=== PATIENT | female | born 1970 | race Hispanic/Latino ===

== ENCOUNTER 2018-02-21 10:13 | Emergency (ER) | payer SELFPAY ==
[2018-02-21 11:13] LABS: Absolute Lymphocytes (CBC) 1.6 K/uL (0.7-4.9); Absolute Monocytes 0.5 K/uL (0.1-1.3); Absolute Neutrophil 4.1 K/uL (1.8-8.0); Basophils % 0.7 % (0-1.3); Eosinophils % 0.7 % (0-4.4); Hematocrit 32.1 % (36.0-45.0); Lymphocytes % 25.8 % (15.3-44.8); MCH 20.5 pg (27.0-35.0); MPV 8.4 fL (7.6-11.3); Monocytes % 8.2 % (3.3-12.3)
[2018-02-21 11:30] LABS: Potassium 3.3 mEq/L (3.6-5.0)
[2018-02-21] MEDS ORDERED: cloNIDine HCl 0.1 MG TAB ONE (11:32)
[2018-02-21 11:36] LABS: Bilirubin Direct 0.1 mg/dL (0-0.2); Bilirubin Total 1.3 mg/dL (0.3-1.2); Magnesium 2.1 mg/dL (1.8-2.5); Protein, Total 7.8 g/dL (6.0-8.3)
[2018-02-21 11:39] LABS: CKMB Creatine Kinase MB 0.7 ng/ml (0.3-4.0)
--- NOTE | 2018-02-21 11:46 | RAD REPORT ---
EXAM DESCRIPTION: RAD - Chest Single View - 02/21/2018 11:08 am CLINICAL HISTORY: Chest pain. COMPARISON: None. FINDINGS: Portable technique limits examination quality. The lungs are grossly clear. The heart is normal in size. No displaced fractures. IMPRESSION: No acute intrathoracic process suspected.
[2018-02-21 11:55] LABS: Protime INR 1.05
[2018-02-21 12:10] LABS: Anisocytosis 1+; Blood Morphology Comment NOTED (NOT SEEN); Hypochromasia 1+; Platelet Estimate ADEQ; Urine White Blood Cell Casts OK
[2018-02-21 13:22] LABS: Urine Blood 1+ (NEG); Urine Glucose NEGATIVE (NEG); Urine Protein 3+ (NEG)
--- NOTE | 2018-02-21 13:31 | RAD REPORT ---
EXAM DESCRIPTION: CT - Angio Aorta For Dissection - 02/21/2018 1:14 pm CLINICAL HISTORY: Chest pain radiating to the back. COMPARISON: None. TECHNIQUE: CT angiography of the aorta was performed with volume rendering. All CT scans are performed using dose optimization technique as appropriate and may include automated exposure control or mA/KV adjustment according to patient size. FINDINGS: A left aortic arch is present with normal branching pattern of the great vessels.No acute aortic finding is seen such as aneurysm, penetrating ulcer or dissection. The celiac axis, SMA, TORRI and renal arteries are widely patent. No evidence of pulmonary embolism. The lungs are clear. The liver demonstrates no focal mass or biliary dilatation.The spleen, pancreas, adrenal glands and k idneys are within normal limits for arterial phase imaging. No bowel obstruction, free fluid or abscess.Small fat containing umbilical hernia.No pathologic enlar ged lymphadenopathy identified. No fracture or worrisome bone lesion seen. IMPRESSION: No acute aortic finding is demonstrated.
[2018-02-21] MEDS ORDERED: NA CHLORIDE 0.9% 1,000 ML ONE (13:58)
[2018-02-21] MEDS ORDERED: MAGNE/ALUM HYDROXD 30 ML UCUP ONE ×2 (13:58→15:29)
[2018-02-21] MEDS ORDERED: LIDOCAINE VISCOUS 2% SOLN 15 ML UDC ONE ×2 (13:59→15:29)
--- NOTE | 2018-02-21 15:18 | ER ---
Nurse's Notes [facility] Name: Ana María Orr Age: 48 yrs Sex: Female : 1970 Arrival Date: 02/21/2018 Time: 10:18 Bed 17 Private MD: Diagnosis: Essential (primary) hypertension;Chest pain, unspecified Presentation: 02/21 10:28 Presenting complaint: Patient states: sharp, continuous substernal CP that began two ss days ago after running and drinking a cold drink. Worse with taking a deep breath and movement. Transition of care: patient was not received from another setting of care. Onset of symptoms was February 19, 2018. Initial Sepsis Screen: Does the patient meet any 2 criteria? No. Patient's initial sepsis screen is negative. Does the patient have a suspected source of infection? No. Patient's initial sepsis screen is negative. Care prior to arrival: None. 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 - Social history:: Smoking status: Patient/guardian denies using tobacco. Screenin:25 Abuse screen: Denies threats or abuse. Nutritional screening: No deficits noted. rb1 Tuberculosis screening: No symptoms or risk factors identified. Fall Risk None identified. Assessment: 10:25 General: Appears uncomfortable, Behavior is calm, cooperative. Pain: Complains of pain rb1 in mid-sternal area. Neuro: Level of Consciousness is awake, alert, obeys commands, Oriented to person, place, time, situation. Cardiovascular: Capillary refill < 3 seconds is brisk in bilateral fingers Rhythm is regular. Respiratory: Airway is patent Respiratory effort is even, unlabored, Respiratory pattern is regular, symmetrical. Derm: Skin is dry, Skin is normal, Skin temperature is warm. 10:25 Pain: Pain radiates to back Pain began 2-3 days ago. rb1 11:20 Reassessment: Patient appears in no apparent distress at this time. Patient and/or rb1 family updated on plan of care and expected duration. Pain level reassessed. Patient is alert, oriented x 3, equal unlabored respirations, skin warm/dry/pink. Patient states feeling better. 12:19 Reassessment: Patient appears in no apparent distress at this time. No changes from rb1 previously documented assessment. pt. went to CT. 13:19 Reassessment: Patient appears in no apparent distress at this time. Patient and/or rb1 family updated on plan of care and expected duration. Pain level reassessed. Patient is alert, oriented x 3, equal unlabored respirations, skin warm/dry/pink. 14:11 Reassessment: Pt. vomited after taking the GI cocktail, provider notified. rb1 14:51 Reassessment: Patient appears in no apparent distress at this time. Patient and/or rb1 family updated on plan of care and expected duration. Pain level reassessed. Patient is alert, oriented x 3, equal unlabored respirations, skin warm/dry/pink. Patient states feeling better. 15:39 Reassessment: Patient appears in no apparent distress at this time. No changes from rb1 previously documented assessment. 15:50 Reassessment: discharge pending on transporation. rb1 Vital Signs: 10:30 BP 236 / 123; Pulse 71; Resp 18; Temp 98.9(TE); Pulse Ox 100% on R/A; Height 5 ft. 1 ss in. (154.94 cm); Pain 8/10; 11:10 BP 227 / 110; Pulse 63; Resp 10; Pulse Ox 99% on R/A; rb1 11:39 BP 216 / 107; Pulse 56; Resp 17; Pulse Ox 98% on R/A; Pain 5/10; rb1 12:05 BP 169 / 91; Pulse 67; rb1 14:00 BP 169 / 110; Pulse 57; Resp 17; Pulse Ox 99% on R/A; dh3 15:00 BP 169 / 91; Pulse 51; Resp 19; Pulse Ox 99% on R/A; rb1 16:00 BP 169 / 98; Pulse 62; Resp 17; Pulse Ox 99% on R/A; rb1 ED Course: 10:18 Patient arrived in ED. sb2 10:25 Patient has correct armband on for positive identification. Placed in gown. Bed in low rb1 position. Call light in reach. Side rails up X 1. graduate fellow on. Pulse ox on. NIBP on. Warm blanket given. 10:25 Patient maintains SpO2 saturation greater than 95% on room air. rb1 10:29 Triage completed. ss 10:29 Zackery Martinez, CRYS is PHCP. pm1 10:29 Baldev Leonard MD is Attending Physician. pm1 10:30 Arm band placed on right wrist. ss 10:45 Nohemy Benitez, RN is Primary Nurse. rb1 10:50 Inserted saline lock: 22 gauge in right antecubital area, using aseptic technique. rb1 Blood collected. 11:05 X-ray completed. Portable x-ray completed in exam room. Patient tolerated procedure la2 well. 11:06 XRAY Chest (1 view) In Process Unspecified. EDMS 12:21 CT completed. Patient moved to CT via stretcher. Patient moved back from CT. cw1 12:59 Urine collected: bed boucher, clear. dh3 13:12 Patient moved back from CT. bq 13:14 CT Aorta for Dissection In Process Unspecified. EDMS 16:10 No provider procedures requiring assistance completed. IV discontinued, intact, rb1 bleeding controlled, No redness/swelling at site. Pressure dressing applied. Administered Medications: 10:50 Drug: Zofran 4 mg Route: IVP; Site: right antecubital; rb1 11:25 Follow up: Response: No adverse reaction; Nausea is decreased rb1 10:55 Drug: Aspirin 325 mg Route: PO; rb1 11:25 Follow up: Response: No adverse reaction rb1 10:55 Drug: morphine 4 mg Route: IVP; Site: right antecubital; rb1 11:25 Follow up: Response: No adverse reaction; Pain is decreased rb1 11:33 Drug: cloNIDine 0.2 mg Route: PO; rb1 12:06 Follow up: Response: No adverse reaction; Blood pressure is lowered rb1 13:44 Drug: NS 0.9% 1000 ml Route: IV; Rate: 1000 ml; Site: right antecubital; rb1 13:57 Drug: GI Cocktail without - (Maalox Suspension 30 ml, Lidocaine Liquid 2 % 15 rb1 ml) Route: PO; 13:58 Follow up: pt. vomited the medication shortly after taking the medication. rb1 15:37 Drug: GI Cocktail with - (Phenobarbital-Belladonna 10 ml, Maalox Suspension 30 rb1 ml, Lidocaine Liquid 2 % 20 ml) Route: PO; 15:38 Drug: TORadol 30 mg Route: IVP; Site: right antecubital; rb1 Intake: Outcome: 15:17 Discharge ordered by . pm1 16:10 Patient left the ED. rb1 16:10 Discharged to home ambulatory, with family. rb1 16:10 Condition: stable 16:10 Discharge instructions given to patient, Instructed on discharge instructions, follow up and referral plans. medication usage, Demonstrated understanding of instructions, follow-up care, medications, Prescriptions given X 1. Signatures: Dispatcher [employer] EDMS Jannet Thomas Shelby, RN RN ss Elizabeth Damian cw1 Nohemy Benitez RN RN rb1 Zackery Martinez NP DIESEL POWERPLANT MECHANIC pm1 Lainey Armenta 3 Delaney Peterson2 Kimberly Tolentino sb2 Corrections: (The following items were deleted from the chart) 11:46 10:30 Home Meds: None; [facility] 14:52 14:51 Reassessment: Patient appears in no apparent distress at this time. No changes rb1 from previously documented assessment. Patient states feeling better. rb1 16:21 16:19 Patient left the ED. rb1 rb1
--- NOTE | 2018-02-21 15:18 | EDPHYS ---
Physician Documentation [facility] Name: Ana María Orr Age: 48 yrs Sex: Female : 1970 Arrival Date: 02/21/2018 Time: 10:18 Bed 17 Private MD: ED Physician Baldev Leonard HPI: 02/21 11:03 This 48 yrs old Female presents to ER via Ambulatory with complaints of Chest pm1 Pain. 11:03 The patient or guardian reports chest pain that is located primarily in the mid-sternal pm1 area. Onset: 2 day(s) ago. The pain radiates to back. Associated signs and symptoms: Pertinent negatives: abdominal pain, cough, diarrhea, dysuria, fever. The chest pain is described as sharp. Duration: The patient or guardian reports a single episode, that is still ongoing. Modifying factors: the symptoms are aggravated by deep breath, palpation of area. Severity of pain: in the emergency department the pain is unchanged. The patient has not experienced similar symptoms in the past. Patient was running for exercise 2 days ago. 5 minutes after running she went to the store and drank a cold drink. Patient reports onset of chest pain with "brain freeze." Patient's pain has been constant since then. Pain increased with deep breathing and palpation . 11:03 Has not taken her Avapro for the past week. . 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 - Social history:: Smoking status: Patient/guardian denies using tobacco. ROS: 11:03 Constitutional: Negative for fever, chills, and weight loss, Eyes: Negative for injury, pm1 pain, redness, and discharge, ENT: Negative for injury, pain, and discharge, Neck: Negative for injury, pain, and swelling. 11:03 Abdomen/GI: Negative for abdominal pain, nausea, vomiting, diarrhea, and constipation, Back: Negative for injury and pain, : Negative for injury, bleeding, discharge, and swelling, MS/Extremity: Negative for injury and deformity, Skin: Negative for injury, rash, and discoloration, Neuro: Negative for headache, weakness, numbness, tingling, and seizure. 11:03 Cardiovascular: Positive for chest pain, Negative for edema, orthopnea, palpitations. 11:03 Respiratory: Positive for shortness of breath, Negative for cough, wheezing. Exam: 11:03 Constitutional: This is a well developed, well nourished patient who is awake, alert, pm1 and in no acute distress. Head/Face: Normocephalic, atraumatic. Eyes: Pupils equal round and reactive to light, extra-ocular motions intact. Lids and lashes normal. Conjunctiva and sclera are non-icteric and not injected. Cornea within normal limits. Periorbital areas with no swelling, redness, or edema. ENT: Nares patent. No nasal discharge, no septal abnormalities noted. Tympanic membranes are normal and external auditory canals are clear. Oropharynx with no redness, swelling, or masses, exudates, or evidence of obstruction, uvula midline. Mucous membranes moist. Neck: Trachea midline, no thyromegaly or masses palpated, and no cervical lymphadenopathy. Supple, full range of motion without nuchal rigidity, or vertebral point tenderness. No Meningismus. 11:03 Cardiovascular: Regular rate and rhythm with a normal S1 and S2. No gallops, murmurs, or rubs. Normal PMI, no JVD. No pulse deficits. Respiratory: Lungs have equal breath sounds bilaterally, clear to auscultation and percussion. No rales, rhonchi or wheezes noted. No increased work of breathing, no retractions or nasal flaring. Abdomen/GI: Soft, non-tender, with normal bowel sounds. No distension or tympany. No guarding or rebound. No evidence of tenderness throughout. Back: No spinal tenderness. No costovertebral tenderness. Full range of motion. Skin: Warm, dry with normal turgor. Normal color with no rashes, no lesions, and no evidence of cellulitis. MS/ Extremity: Pulses equal, no cyanosis. Neurovascular intact. Full, normal range of motion. 11:03 Chest/axilla: Inspection: normal, Palpation: crepitus, is not appreciated, tenderness, of the mid-sternal area, that totally reproduces the patient's complaints, Chest pain reproduced with deep breathing. 11:03 Neuro: Orientation: is normal, Motor: is normal, moves all fours, Sensation: is normal, no obvious gross deficits. Vital Signs: 10:30 BP 236 / 123; Pulse 71; Resp 18; Temp 98.9(TE); Pulse Ox 100% on R/A; Height 5 ft. 1 ss in. (154.94 cm); Pain 8/10; 11:10 BP 227 / 110; Pulse 63; Resp 10; Pulse Ox 99% on R/A; rb1 11:39 BP 216 / 107; Pulse 56; Resp 17; Pulse Ox 98% on R/A; Pain 5/10; rb1 12:05 BP 169 / 91; Pulse 67; rb1 14:00 BP 169 / 110; Pulse 57; Resp 17; Pulse Ox 99% on R/A; dh3 15:00 BP 169 / 91; Pulse 51; Resp 19; Pulse Ox 99% on R/A; rb1 16:00 BP 169 / 98; Pulse 62; Resp 17; Pulse Ox 99% on R/A; rb1 MDM: 10:29 Patient medically screened. pm1 15:16 Data reviewed: vital signs. Data interpreted: Pulse oximetry: on room air is 99 %. pm1 Interpretation: normal. 02/21 10:35 Order name: Basic Metabolic Panel pm1 02/21 10:35 Order name: BNP pm02/21 10:35 Order name: CBC with Diff pm1 02/21 10:35 Order name: Ckmb pm02/21 10:35 Order name: CPK pm1 02/21 10:35 Order name: LFT's; Complete Time: 11:44 pm1 02/21 10:35 Order name: Magnesium; Complete Time: 11:44 pm1 02/21 10:35 Order name: PT-INR; Complete Time: 12:14 pm1 02/21 10:35 Order name: Ptt, Activated; Complete Time: 12:14 pm1 02/21 10:35 Order name: Troponin (emerg Dept Use Only); Complete Time: 11:44 pm1 02/21 10:36 Order name: Basic Metabolic Panel; Complete Time: 11:44 EDMS 02/21 10:36 Order name: BNP B-Type Natriuretic Peptide; Complete Time: 11:44 EDMS 02/21 10:36 Order name: CBC with Automated Diff; Complete Time: 12:14 EDMS 02/21 10:36 Order name: CKMB Creatine Kinase MB; Complete Time: 11:44 EDMS 02/21 10:35 Order name: Urine Test (obtain specimen); Complete Time: 13:00 pm1 02/21 10:35 Order name: XRAY Chest (1 view); Complete Time: 11:53 pm1 02/21 10:35 Order name: EKG; Complete Time: 10:36 pm1 02/21 10:36 Order name: Creatine Phosphokinase; Complete Time: 11:44 EDMS 02/21 11:21 Order name: CBC Smear Scan; Complete Time: 12:14 EDMS 02/21 11:46 Order name: CT Aorta for Dissection; Complete Time: 13:35 pm1 02/21 13:03 Order name: Urine Dipstick--Ancillary (enter results); Complete Time: 13:24 eb 02/21 13:03 Order name: Urine --Ancillary (enter results); Complete Time: 13:24 eb 02/21 10:35 Order name: Cardiac monitoring; Complete Time: 11:05 pm1 02/21 10:35 Order name: EKG - Nurse/Tech; Complete Time: 11:05 pm1 02/21 10:35 Order name: IV Saline Lock; Complete Time: 11:05 pm1 02/21 10:35 Order name: Labs collected and sent; Complete Time: 11:05 pm1 02/21 10:35 Order name: O2 Per Protocol; Complete Time: 11:05 pm1 02/21 10:35 Order name: O2 Sat Monitoring; Complete Time: 11:05 pm1 02/21 10:35 Order name: Urine Dipstick-Ancillary (obtain specimen); Complete Time: 13:00 pm1 Administered Medications: 10:50 Drug: Zofran 4 mg Route: IVP; Site: right antecubital; rb1 11:25 Follow up: Response: No adverse reaction; Nausea is decreased rb1 10:55 Drug: Aspirin 325 mg Route: PO; rb1 11:25 Follow up: Response: No adverse reaction rb1 10:55 Drug: morphine 4 mg Route: IVP; Site: right antecubital; rb1 11:25 Follow up: Response: No adverse reaction; Pain is decreased rb1 11:33 Drug: cloNIDine 0.2 mg Route: PO; rb1 12:06 Follow up: Response: No adverse reaction; Blood pressure is lowered rb1 13:44 Drug: NS 0.9% 1000 ml Route: IV; Rate: 1000 ml; Site: right antecubital; rb1 13:57 Drug: GI Cocktail without - (Maalox Suspension 30 ml, Lidocaine Liquid 2 % 15 rb1 ml) Route: PO; 13:58 Follow up: pt. vomited the medication shortly after taking the medication. rb1 15:37 Drug: GI Cocktail with - (Phenobarbital-Belladonna 10 ml, Maalox Suspension 30 rb1 ml, Lidocaine Liquid 2 % 20 ml) Route: PO; 15:38 Drug: TORadol 30 mg Route: IVP; Site: right antecubital; rb1 Disposition: 16:47 Co-signature as Attending Physician, Baldev Leonard MD. rn Disposition: 02/21/18 15:17 Discharged to Home. Impression: Essential (primary) hypertension, Chest pain, unspecified. - Condition is Stable. - Discharge Instructions: Nonspecific Chest Pain, Hypertension, How to Take Your Blood Pressure, [id number], DASH Eating Plan, Managing Your High Blood Pressure. - Prescriptions for Avapro 300 mg Oral tablet - take 1 tablet by ORAL route once daily; 10 tablet. - Medication Reconciliation Form, Thank You Letter form. - Follow up: Emergency Department; When: As needed; Reason: Worsening of condition. Follow up: Private Physician; When: 2 - 3 days; Reason: Recheck today's complaints, Continuance of care, Re-evaluation by your physician. - Problem is new. - Symptoms have improved. Signatures: Dispatcher [employer] EDMS Baldev Leonard MD MD rn Smirch, Shelby, RN RN ss Stef Back RN RN la1 Nohemy Benitez, RN RN rb1 Zackery Martinez, CRYS TRAVELING AUDITOR pm1 Corrections: (The following items were deleted from the chart) 11:46 10:30 Home Meds: None; rb1 13:52 11:03 The pain radiates to pm1 pm1 16:19 15:17 02/21/2018 15:17 Discharged to Home. Impression: Essential (primary) rb1 hypertension; Chest pain, unspecified. Condition is Stable. Forms are Medication Reconciliation Form, Thank You Letter, Antibiotic Education, Prescription Opioid Use. Follow up: Emergency Department; When: As needed; Reason: Worsening of condition. Follow up: Private Physician; When: 2 - 3 days; Reason: Recheck today's complaints, Continuance of care, Re-evaluation by your physician. Problem is new. Symptoms have improved. pm1
[2018-02-21] MEDS ORDERED: KETOROLAC 30 MG/ML INJ ONE (15:29)
--- NOTE | 2018-02-22 06:56 | EKG ---
Test Date: 2018-02-21 Test Time: 10:35:48 Market Research Specialist: [place] MEASUREMENT RESULTS: Intervals: Rate: 70 ID: [id number] QRSD: 82 QT: 436 QTc: 470 Wray: P: 38 ID: [id number] QRS: 52 T: 52 INTERPRETIVE STATEMENTS: Normal sinus rhythm with sinus arrhythmia Normal ECG No previous ECG available for comparison Electronically Signed On 02-22-18 06:53:51 CDT by Cuco Saleh
== END 2018-02-21 16:19 | disposition home or self-care (01) ==
LOC: ER 10:13
DX: I10 Essential (primary) hypertension (principal); N28.9 Disorder of kidney and ureter, unspecified
CPT/HCPCS: 36415; 71045; 71275; 74175; 80048; 80076; 81003; 81025; 82550; 82553; 83735; 83880; 84484; 85025; 85610; 85730; 93005; 96374; 96375; 99285; J7030; Q9967